=== PATIENT | female | born 1970 | race Caucasian/White ===

== ENCOUNTER → 2018-03-29 | Outpatient (CLI) | payer BC | LOC: MC.RAD 09:12 | DX: N64.89 Other specified disorders of breast (principal); N63.11 Unspecified lump in the right breast, upper outer quadrant ==

== ENCOUNTER → 2019-05-15 | Outpatient (CLI) | payer BC | LOC: MC.RAD 11:24 | DX: Z12.31 Encounter for screening mammogram for malignant neoplasm of breast (principal); N64.89 Other specified disorders of breast ==

== ENCOUNTER → 2022-03-09 | Outpatient (CLI) | payer BC | LOC: MC.RAD 16:40 | DX: Z12.31 Encounter for screening mammogram for malignant neoplasm of breast (principal) ==